=== PATIENT | male | born 1980 | race African-American/Black ===

== ENCOUNTER 2018-01-26 08:00 | Emergency (ER) | payer SELFPAY ==
[2018-01-26] MEDS ORDERED: Lidocaine 1% w/Epinephrine 1:100K 20 ML VIAL ONE (09:18)
[2018-01-26] MEDS ORDERED: Ketorolac Tromethamine 60 MG/2 ML VIAL ONE (09:43)
[2018-01-26] MEDS ORDERED: Clindamycin 150 MG CAP ONE (09:54)
== END 2018-01-26 10:15 | disposition home or self-care (01) ==
LOC: ERS 08:00
DX: M27.2 Inflammatory conditions of jaws (principal)
CPT/HCPCS: 10060; 96372; J1885; J2001

== ENCOUNTER 2018-01-28 08:17 | Emergency (ER) | payer SELFPAY | END 2018-01-28 09:30 | disposition home or self-care (01) | LOC: ERS 08:17 | DX: Z48.817 Encounter for surgical aftercare following surgery on the skin and subcutaneous tissue (principal) | CPT/HCPCS: 99282 ==